=== PATIENT | female | born 1940 | race Caucasian/White ===

== ENCOUNTER 2018-01-22 16:07 | Emergency (ER) | payer OTHER ==
[~2018-01-22] VITALS: Ht 157.5 cm; Wt 108.4 kg
[~2018-01-22 16:07] MED LIST: ALBU2.5V5 NEB; ALBU8.5H8 IH; AMIO200T4 PO; AMLO2.5T2 PO; ASPI81TA59 PO; ATOR40TA59 PO; CARV12.52 PO; CARV3.12 PO; CEFP200T PO; CYCL1DRO EACHEYE; INSU100I17 SQ; INSU100I27 SQ; INSU200I SQ; LEVO50TA PO; LORA0.5T PO; LORA10TA3 PO; MAGN400T3 PO; MENT3.5O TP; METH1TAB20 PO; METO-247 PO; METO5TAB4 PO; MIRA50TA PO; MIRT15TA3 PO; MONT10TA9 PO; MULT1TAB52 PO; PANT20TA2 PO; POTA20TA82 PO; SENN-22 PO; TORS20TA2 PO
--- NOTE | 2018-01-22 16:39 | PHYS DOC ---
Past Medical History Past Medical History: A-Fib, Anxiety, Cancer, CHF, Diabetes-Type II, GERD, Hypertension, Renal Disease Additional Past Medical Histor: morbid obesity Past Surgical History: Appendectomy, Cholecystectomy, Hip Replacement Additional Past Surgical Histo: L MASECTOMY Alcohol Use: None Drug Use: None Adult General Chief Complaint Chief Complaint: PAIN ON URINATION [facility] HPI Patient is a 77 year old female presents to the ED complaining of dysuria x 2 weeks. States she was diagnosed with a urinary tract infection 2 weeks ago. States they did a culture and sensitivity outpatient with urology, Dr. Kim. States she needs prior authorization for linezolid and Dr. Kim has not called to arrange that with the pharmacy. Denies chest pain, shortness of breath, dizziness, weakness, nausea/vomiting, abdominal pain, headache, fever or vaginal discharge/bleeding. Review of Systems Review of Systems Constitutional: Denies fever or chills [] Eyes: Denies change in visual acuity, redness, or eye pain [] HENT: Denies nasal congestion or sore throat [] Respiratory: Denies cough or shortness of breath [] Cardiovascular: No additional information not addressed in HPI [] GI: Denies abdominal pain, nausea, vomiting, bloody stools or diarrhea [] : Complains of dysuria. Denies hematuria [] Musculoskeletal: Denies back pain or joint pain [] Integument: Denies rash or skin lesions [] Neurologic: Denies headache, focal weakness or sensory changes [] All other systems were reviewed and found to be within normal limits, except as documented in this note. Current Medications Current Medications Current Medications Medications (Trade) Dose Ordered Sig/Kathi Start Time Stop Time Status Last Admin Dose Admin Linezolid/Dextrose 300 ml @ 300 mls/hr ONCE ONCE 01/22/18 16:45 01/22/18 17:44 DC 01/22/18 16:52 300 MLS/HR Allergies Allergies Allergies Coded Allergies Type Severity Reaction Last Updated Verified Sulfa (Sulfonamide Antibiotics) Allergy Intermediate 09/04/17 Yes adhesive Allergy Intermediate 09/04/17 Yes amoxicillin Allergy Intermediate 09/04/17 Yes cephalexin Allergy Intermediate 09/04/17 Yes ciprofloxacin Allergy Intermediate HAS TOLERATED LQ 12/18/17 Yes clavulanic acid Allergy Intermediate 09/04/17 Yes clindamycin Allergy Intermediate 09/04/17 Yes doxycycline Allergy Intermediate 09/04/17 Yes latex Allergy Intermediate 09/04/17 Yes pioglitazone Allergy Intermediate 09/04/17 Yes pneumococcal vaccine Allergy Intermediate 09/04/17 Yes propoxyphene Allergy Intermediate 09/04/17 Yes roflumilast Allergy Intermediate 09/04/17 Yes tetanus and diphtheria toxoids Allergy Intermediate 09/04/17 Yes trimethoprim Allergy Intermediate 09/04/17 Yes vancomycin Allergy Intermediate 09/04/17 Yes I S O L A T I O N *CONTACT* Allergy Unknown 12/22/17 Yes Physical Exam Physical Exam Constitutional: Well developed, well nourished, no acute distress, non-toxic appearance. [] HENT: Normocephalic, atraumatic Neck: Normal range of motion, no tenderness, supple, no stridor. [] Cardiovascular:Heart rate regular rhythm, no murmur [] Lungs & Thorax: Bilateral breath sounds clear to auscultation [] Abdomen: Bowel sounds normal, soft, no tenderness, no masses, no pulsatile masses. [] Skin: Warm, dry, no erythema, no rash. [] Back: No tenderness, no CVA tenderness. [] Extremities: No tenderness, no cyanosis, no clubbing, ROM intact, no edema. [] Neurologic: Alert and oriented X 3, normal motor function, normal sensory function, no focal deficits noted. [] Psychologic: Affect normal, judgement normal, mood normal. [] Current Patient Data Vital Signs Vital Signs Date Time Temp Pulse Resp B/P (MAP) Pulse Ox O2 Delivery O2 Flow Rate FiO2 01/22/18 17:55 58 179/73 (108) 100 Room Air 01/22/18 16:13 98.8 20 98.8 Lab Values Laboratory Tests Test 01/22/18 16:54 01/22/18 16:55 White Blood Count 4.6 x10^3/uL (4.0-11.0) Red Blood Count 3.54 x10^6/uL (3.50-5.40) Hemoglobin 11.3 g/dL (12.0-15.5) L Hematocrit 33.2 % (36.0-47.0) L Mean Corpuscular Volume 94 fL (79-100) Mean Corpuscular Hemoglobin 32 pg (25-35) Mean Corpuscular Hemoglobin Concent 34 g/dL (31-37) Red Cell Distribution Width 14.4 % (11.5-14.5) Platelet Count 132 x10^3/uL (140-400) L Neutrophils (%) (Auto) 59 % (31-73) Lymphocytes (%) (Auto) 23 % (24-48) L Monocytes (%) (Auto) 12 % (0-9) H Eosinophils (%) (Auto) 5 % (0-3) H Basophils (%) (Auto) 1 % (0-3) Neutrophils # (Auto) 2.8 x10^3uL (1.8-7.7) Lymphocytes # (Auto) 1.1 x10^3/uL (1.0-4.8) Monocytes # (Auto) 0.5 x10^3/uL (0.0-1.1) Eosinophils # (Auto) 0.2 x10^3/uL (0.0-0.7) Basophils # (Auto) 0.1 x10^3/uL (0.0-0.2) Sodium Level 144 mmol/L (136-145) Potassium Level 4.1 mmol/L (3.5-5.1) Chloride Level 108 mmol/L (98-107) H Carbon Dioxide Level 25 mmol/L (21-32) Anion Gap 11 (6-14) Blood Urea Nitrogen 40 mg/dL (7-20) H Creatinine 1.6 mg/dL (0.6-1.0) H Estimated GFR (Cockcroft-Gault) 31.1 BUN/Creatinine Ratio 25 (6-20) H Glucose Level 112 mg/dL (70-99) H Calcium Level 9.5 mg/dL (8.5-10.1) Total Bilirubin 0.6 mg/dL (0.2-1.0) Aspartate Amino Transferase (AST) 46 U/L (15-37) H Alanine Aminotransferase (ALT) 25 U/L (14-59) Alkaline Phosphatase 208 U/L (46-116) H Total Protein 7.1 g/dL (6.4-8.2) Albumin 2.9 g/dL (3.4-5.0) L Albumin/Globulin Ratio 0.7 (1.0-1.7) L Urine Collection Type U cath Urine Color Yellow Urine Clarity Clear Urine pH 6.5 Urine Specific [place] 1.010 Urine Protein Negative mg/dL (NEG-TRACE) Urine Glucose (UA) Negative mg/dL (NEG) Urine Ketones (Stick) Negative mg/dL (NEG) Urine Blood Negative (NEG) Urine Nitrite Negative (NEG) Urine Bilirubin Negative (NEG) Urine Urobilinogen Dipstick 0.2 mg/dL (0.2 mg/dL) Urine Leukocyte Esterase Moderate (NEG) Urine RBC Rare /HPF (0-2) Urine WBC 11-20 /HPF (0-4) Urine Squamous Epithelial Cells Occ /LPF Urine Transitional Epithelial Cells Occ /LPF Urine Renal Epithelial Cells Occ /LPF Urine Bacteria 0 /HPF (0-FEW) Laboratory Tests 01/22/18 16:54 Laboratory Tests 01/22/18 16:54 EKG EKG [] Radiology/Procedures Radiology/Procedures [] Course & Med Decision Making Course & Med Decision Making Pertinent Labs and Imaging studies reviewed. (See chart for details) []Discussed case with Yamilex DE JESUS with Dr. Kim. She agrees that if patient is stable and no white count, she can be sent home after a dose of her linezolid and she will figure out the prior authorization stuff so patient can have a dose at home tomorrow. Discussed with patient and family to call tomorrow morning to discuss with Yamilex DE JESUS the plan. On reexamination, abdomen is soft nontender nondistended. No peritoneal signs. Tolerating by mouth. Discussed follow-up and reasons to return to the ED. Patient understands and agrees with plan. Family at bedside whom is agreeable to plan. Dragon Disclaimer Dragon Disclaimer This electronic medical record was generated, in whole or in part, using a voice recognition dictation system. Departure Departure Impression: Primary Impression: Urinary tract infection Disposition: 01 HOME, SELF-CARE Condition: IMPROVED Referrals: SHANT BARNES MD (PCP) LIV KIM MD Patient Instructions: Urinary Tract Infection THONY WHITTINGTON Jan 22, 2018 16:39
[2018-01-22 17:01] LABS: BASO # 0.1 x10^3/uL (0.0-0.2); BASO % 1 % (0-3); EOS # 0.2 x10^3/uL (0.0-0.7); EOS % 5 % (0-3); HEMATOCRIT 33.2 % (36.0-47.0); HEMOGLOBIN 11.3 g/dL (12.0-15.5); LYMPH # 1.1 x10^3/uL (1.0-4.8); LYMPH % 23 % (24-48); MEAN CORPUSCULAR HEMOGLOBIN 32 pg (25-35); MEAN CORPUSCULAR HGB CONC 34 g/dL (31-37); MEAN CORPUSCULAR VOLUME 94 fL (79-100); MONO # 0.5 x10^3/uL (0.0-1.1); MONO % 12 % (0-9); NEUT # 2.8 x10^3uL (1.8-7.7); NEUT % 59 % (31-73); PLATELET COUNT 132 x10^3/uL (140-400); RED BLOOD COUNT 3.54 x10^6/uL (3.50-5.40); RED CELL DISTRIBUTION WIDTH 14.4 % (11.5-14.5); WHITE BLOOD COUNT 4.6 x10^3/uL (4.0-11.0)
[2018-01-22 17:05] LABS: BILIRUBIN,URINE NEGATIVE (NEG); CLARITY,URINE CLEAR; COLOR,URINE YELLOW; NITRITE,URINE NEGATIVE (NEG); PH,URINE 6.5; PROTEIN,URINE NEGATIVE (NEG-TRACE); UROBILINOGEN,URINE 0.2 mg/dL (0.2 mg/dL)
[2018-01-22 17:10] LABS: CALCIUM 9.5 mg/dL (8.5-10.1); CREATININE 1.6 mg/dL (0.6-1.0); GFR 31.1; POTASSIUM 4.1 mmol/L (3.5-5.1)
[2018-01-22 17:15] LABS: BACTERIA,URINE 0 /HPF (0-FEW); RBC,URINE RARE /HPF (0-2); SQUAMOUS EPITHELIAL CELL,UR OCC /LPF
[2018-01-22 17:17] LABS: ALBUMIN 2.9 g/dL (3.4-5.0); ALBUMIN/GLOBULIN RATIO 0.7 (1.0-1.7); TOTAL BILIRUBIN 0.6 mg/dL (0.2-1.0); TOTAL PROTEIN 7.1 g/dL (6.4-8.2)
[2018-01-22 17:55] VITALS: BP 179/73
== END 2018-01-22 18:04 | disposition home or self-care (01) ==
LOC: ER 16:07
DX: N39.0 Urinary tract infection, site not specified (principal); I11.0 Hypertensive heart disease with heart failure; I50.9 Heart failure, unspecified; K21.9 Gastro-esophageal reflux disease without esophagitis; I48.91 Unspecified atrial fibrillation; E66.01 Morbid (severe) obesity due to excess calories; Z68.41 Body mass index [BMI] 40.0-44.9, adult; E11.9 Type 2 diabetes mellitus without complications; Z90.89 Acquired absence of other organs; Z90.49 Acquired absence of other specified parts of digestive tract; Z88.2 Allergy status to sulfonamides; Z88.8 Allergy status to other drugs, medicaments and biological substances; Z88.1 Allergy status to other antibiotic agents; Z91.041 Radiographic dye allergy status; Z91.040 Latex allergy status; Z88.7 Allergy status to serum and vaccine
CPT/HCPCS: 36415; 51701; 80053; 81001; 85025; 96365; 99284; J2020

== ENCOUNTER 2018-01-23 15:47 | Emergency (ER) | payer OTHER ==
[~2018-01-23] VITALS: Ht 157.5 cm; Wt 108.6 kg
[2018-01-23 16:27] LABS: BASO # 0.1 x10^3/uL (0.0-0.2); BASO % 1 % (0-3); EOS # 0.3 x10^3/uL (0.0-0.7); EOS % 6 % (0-3); HEMATOCRIT 32.6 % (36.0-47.0); HEMOGLOBIN 11.2 g/dL (12.0-15.5); LYMPH # 1.1 x10^3/uL (1.0-4.8); LYMPH % 22 % (24-48); MEAN CORPUSCULAR HEMOGLOBIN 32 pg (25-35); MEAN CORPUSCULAR HGB CONC 34 g/dL (31-37); MEAN CORPUSCULAR VOLUME 94 fL (79-100); MONO # 0.5 x10^3/uL (0.0-1.1); MONO % 11 % (0-9); NEUT # 2.8 x10^3uL (1.8-7.7); NEUT % 60 % (31-73); PLATELET COUNT 130 x10^3/uL (140-400); RED BLOOD COUNT 3.45 x10^6/uL (3.50-5.40); RED CELL DISTRIBUTION WIDTH 14.4 % (11.5-14.5); WHITE BLOOD COUNT 4.7 x10^3/uL (4.0-11.0)
[2018-01-23 16:29] LABS: BILIRUBIN,URINE NEGATIVE (NEG); CLARITY,URINE CLEAR; COLOR,URINE YELLOW; NITRITE,URINE NEGATIVE (NEG); PH,URINE 6.5; PROTEIN,URINE NEGATIVE (NEG-TRACE); UROBILINOGEN,URINE 0.2 mg/dL (0.2 mg/dL)
--- NOTE | 2018-01-23 16:30 | PHYS DOC ---
Past Medical History Past Medical History: A-Fib, Anxiety, Cancer, CHF, Diabetes-Type II, GERD, Hypertension, Renal Disease Additional Past Medical Histor: BREAST CANCER Past Surgical History: Appendectomy, Cholecystectomy, Hip Replacement, Hysterectomy Additional Past Surgical Histo: L MASECTOMY Alcohol Use: None Drug Use: None Adult General Chief Complaint Chief Complaint: PAIN ON URINATION [facility] HPI Patient is a 77 year old female presents to the ED complaining of dysuria 2 weeks. Patient seen in the ED for same symptoms yesterday. States she called Dr. Kim's office and the authorization for linezolid did not go through. States they came back to the ED because there home health nurse told them that she needs to be treated. Patient given linezolid in the ED yesterday. Denies dysuria, hematuria, abdominal pain, fever, flank pain, chest pain, shortness of breath, nausea/vomiting or dizziness. Review of Systems Review of Systems Constitutional: Denies fever or chills [] Eyes: Denies change in visual acuity, redness, or eye pain [] HENT: Denies nasal congestion or sore throat [] Respiratory: Denies cough or shortness of breath [] Cardiovascular: No additional information not addressed in HPI [] GI: Denies abdominal pain, nausea, vomiting, bloody stools or diarrhea [] : Denies dysuria or hematuria [] Musculoskeletal: Denies back pain or joint pain [] Integument: Denies rash or skin lesions [] Neurologic: Denies headache, focal weakness or sensory changes [] All other systems were reviewed and found to be within normal limits, except as documented in this note. Current Medications Current Medications Current Medications Medications (Trade) Dose Ordered Sig/Kathi Start Time Stop Time Status Last Admin Dose Admin Linezolid/Dextrose 300 ml @ 300 mls/hr ONCE ONCE 01/23/18 16:15 01/23/18 17:14 DC 01/23/18 17:19 300 MLS/HR Allergies Allergies Allergies Coded Allergies Type Severity Reaction Last Updated Verified Sulfa (Sulfonamide Antibiotics) Allergy Intermediate 09/04/17 Yes adhesive Allergy Intermediate 09/04/17 Yes amoxicillin Allergy Intermediate 09/04/17 Yes cephalexin Allergy Intermediate 09/04/17 Yes ciprofloxacin Allergy Intermediate HAS TOLERATED LQ 12/18/17 Yes clavulanic acid Allergy Intermediate 09/04/17 Yes clindamycin Allergy Intermediate 09/04/17 Yes doxycycline Allergy Intermediate 09/04/17 Yes latex Allergy Intermediate 09/04/17 Yes pioglitazone Allergy Intermediate 09/04/17 Yes pneumococcal vaccine Allergy Intermediate 09/04/17 Yes propoxyphene Allergy Intermediate 09/04/17 Yes roflumilast Allergy Intermediate 09/04/17 Yes tetanus and diphtheria toxoids Allergy Intermediate 09/04/17 Yes trimethoprim Allergy Intermediate 09/04/17 Yes vancomycin Allergy Intermediate 09/04/17 Yes I S O L A T I O N *CONTACT* Allergy Unknown 12/22/17 Yes Physical Exam Physical Exam Constitutional: Well developed, well nourished, no acute distress, non-toxic appearance. [] HENT: Normocephalic, atraumatic Eyes: PERRLA, EOMI, conjunctiva normal, no discharge. [] Neck: Normal range of motion, no tenderness, supple, no stridor. [] Cardiovascular:Heart rate regular rhythm, no murmur [] Lungs & Thorax: Bilateral breath sounds clear to auscultation [] Abdomen: Bowel sounds normal, soft, no tenderness, no masses, no pulsatile masses. [] Skin: Warm, dry, no erythema, no rash. [] Back: No tenderness, no CVA tenderness. [] Extremities: No tenderness, no cyanosis, no clubbing, ROM intact, no edema. [] Neurologic: Alert and oriented X 3, normal motor function, normal sensory function, no focal deficits noted. [] Psychologic: Affect normal, judgement normal, mood normal. [] Current Patient Data Vital Signs Vital Signs Date Time Temp Pulse Resp B/P (MAP) Pulse Ox O2 Delivery O2 Flow Rate FiO2 01/23/18 18:00 60 179/74 (109) 100 Room Air 01/23/18 15:55 97.6 22 97.6 Lab Values Laboratory Tests Test 01/23/18 16:14 01/23/18 16:18 Urine Collection Type U cath Urine Color Yellow Urine Clarity Clear Urine pH 6.5 Urine Specific [place] 1.010 Urine Protein Negative mg/dL (NEG-TRACE) Urine Glucose (UA) Negative mg/dL (NEG) Urine Ketones (Stick) Negative mg/dL (NEG) Urine Blood Negative (NEG) Urine Nitrite Negative (NEG) Urine Bilirubin Negative (NEG) Urine Urobilinogen Dipstick 0.2 mg/dL (0.2 mg/dL) Urine Leukocyte Esterase Small (NEG) Urine RBC 0 /HPF (0-2) Urine WBC 5-10 /HPF (0-4) Urine Squamous Epithelial Cells Few /LPF Urine Bacteria 0 /HPF (0-FEW) Urine Hyaline Casts Few /HPF Urine Mucus Slight /LPF White Blood Count 4.7 x10^3/uL (4.0-11.0) Red Blood Count 3.45 x10^6/uL (3.50-5.40) L Hemoglobin 11.2 g/dL (12.0-15.5) L Hematocrit 32.6 % (36.0-47.0) L Mean Corpuscular Volume 94 fL (79-100) Mean Corpuscular Hemoglobin 32 pg (25-35) Mean Corpuscular Hemoglobin Concent 34 g/dL (31-37) Red Cell Distribution Width 14.4 % (11.5-14.5) Platelet Count 130 x10^3/uL (140-400) L Neutrophils (%) (Auto) 60 % (31-73) Lymphocytes (%) (Auto) 22 % (24-48) L Monocytes (%) (Auto) 11 % (0-9) H Eosinophils (%) (Auto) 6 % (0-3) H Basophils (%) (Auto) 1 % (0-3) Neutrophils # (Auto) 2.8 x10^3uL (1.8-7.7) Lymphocytes # (Auto) 1.1 x10^3/uL (1.0-4.8) Monocytes # (Auto) 0.5 x10^3/uL (0.0-1.1) Eosinophils # (Auto) 0.3 x10^3/uL (0.0-0.7) Basophils # (Auto) 0.1 x10^3/uL (0.0-0.2) Sodium Level 145 mmol/L (136-145) Potassium Level 4.0 mmol/L (3.5-5.1) Chloride Level 107 mmol/L (98-107) Carbon Dioxide Level 24 mmol/L (21-32) Anion Gap 14 (6-14) Blood Urea Nitrogen 44 mg/dL (7-20) H Creatinine 1.7 mg/dL (0.6-1.0) H Estimated GFR (Cockcroft-Gault) 29.0 BUN/Creatinine Ratio 26 (6-20) H Glucose Level 102 mg/dL (70-99) H Calcium Level 9.2 mg/dL (8.5-10.1) Total Bilirubin 0.8 mg/dL (0.2-1.0) Aspartate Amino Transferase (AST) 41 U/L (15-37) H Alanine Aminotransferase (ALT) 26 U/L (14-59) Alkaline Phosphatase 210 U/L (46-116) H Total Protein 7.1 g/dL (6.4-8.2) Albumin 3.0 g/dL (3.4-5.0) L Albumin/Globulin Ratio 0.7 (1.0-1.7) L Laboratory Tests 01/23/18 16:18 Laboratory Tests 01/23/18 16:18 EKG EKG [] Radiology/Procedures Radiology/Procedures [] Course & Med Decision Making Course & Med Decision Making Pertinent Labs and Imaging studies reviewed. (See chart for details) []Patient given 2nd dose of linezolid in the ED. Patient is currently not having any symptoms of uti. Well appearing, abdomen is soft nontender nondistended. No peritoneal signs. Tolerating PO. Discussed case with Dr. Kim (Urology), states that patient is not having symptoms and has not worsened from infection without antibiotics in the 2 weeks prior to receiving linezolid yesterday. Patients urine shows small leukocyte esterase with 5-10 wbc's. He recommended sending a culture of her urine today and following up in one week in his office. States that she does not require any antibiotics at this time. Discussed signs and symptoms to return to the ED. Patient and family understand and agree with plan. States they will see her PCP tomorrow. Dragon Disclaimer Dragon Disclaimer This electronic medical record was generated, in whole or in part, using a voice recognition dictation system. Departure Departure Impression: Primary Impression: Bacteriuria Disposition: 01 HOME, SELF-CARE Condition: IMPROVED Referrals: SHANT BARNES MD (PCP) LIV KIM MD Patient Instructions: Antibiotic Medication THONY WHITTINGTON Jan 23, 2018 16:30
[2018-01-23 16:34] LABS: BACTERIA,URINE 0 /HPF (0-FEW); HYALINE CASTS, URINE FEW /HPF; RBC,URINE 0 /HPF (0-2); SQUAMOUS EPITHELIAL CELL,UR FEW /LPF
[2018-01-23 16:45] LABS: CALCIUM 9.2 mg/dL (8.5-10.1); CREATININE 1.7 mg/dL (0.6-1.0)
[2018-01-23 16:50] LABS: ALBUMIN/GLOBULIN RATIO 0.7 (1.0-1.7); TOTAL BILIRUBIN 0.8 mg/dL (0.2-1.0); TOTAL PROTEIN 7.1 g/dL (6.4-8.2)
[2018-01-23 18:00] VITALS: BP 179/74
== END 2018-01-23 18:49 | disposition home or self-care (01) ==
LOC: ER 15:47
DX: R82.71 Bacteriuria (principal); I48.91 Unspecified atrial fibrillation; F41.9 Anxiety disorder, unspecified; E11.9 Type 2 diabetes mellitus without complications; K21.9 Gastro-esophageal reflux disease without esophagitis; I11.0 Hypertensive heart disease with heart failure; I50.9 Heart failure, unspecified; Z90.89 Acquired absence of other organs; Z90.49 Acquired absence of other specified parts of digestive tract; Z90.710 Acquired absence of both cervix and uterus; Z96.649 Presence of unspecified artificial hip joint; Z90.12 Acquired absence of left breast and nipple; Z88.1 Allergy status to other antibiotic agents; Z88.2 Allergy status to sulfonamides; Z88.8 Allergy status to other drugs, medicaments and biological substances; Z91.040 Latex allergy status; Z88.7 Allergy status to serum and vaccine; Z91.041 Radiographic dye allergy status
CPT/HCPCS: 36415; 80053; 81001; 85025; 87086; 96365; 99284; J2020